=== PATIENT | male | born 2000 | race African-American/Black ===

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

== ENCOUNTER 2021-05-02 19:22 | Emergency (ER) | payer MEDICAID ==
[~2021-05-02] VITALS: Ht 160 cm; Wt 51.8 kg
[~2021-05-02 19:22] MED LIST changes: +ZITHROMAX 250M250 MG PO; +ZOFRAN ODT4 MG PO
[2021-05-02 19:30] VITALS: BP 105/68; TEMP 97.8
[2021-05-02] MEDS ORDERED: SEPTRA DS 8001 TAB PO (19:48)
[2021-05-02] MEDS ORDERED: FLAGYL500 MG PO (19:48)
[2021-05-02 20:02] VITALS: PULSE 78
== END 2021-05-02 20:02 | disposition home or self-care (01) ==
LOC: COL.ER 19:22
DX: L03.114 Cellulitis of left upper limb (principal); F17.290 Nicotine dependence, other tobacco product, uncomplicated

== ENCOUNTER 2024-02-11 13:32 | Emergency (ER) | payer SELFPAY ==
[~2024-02-11] VITALS: Ht 160 cm; Wt 54.5 kg
[~2024-02-11 13:32] MED LIST changes: +FLAGYL500 MG PO; +SEPTRA DS 8001 TAB PO
[2024-02-11 13:46] VITALS: BP 113/67; PULSE 106; TEMP 98
== END 2024-02-11 15:33 | disposition left against medical advice (07) ==
LOC: COL.ER 13:32
DX: R55 Syncope and collapse (principal); R42 Dizziness and giddiness

== ENCOUNTER 2024-02-15 18:50 | Emergency (ER) | payer SELFPAY ==
[~2024-02-15] VITALS: Ht 160 cm; Wt 54.5 kg
[2024-02-15 18:53] VITALS: TEMP 98
[2024-02-15 19:12] LABS: BASO % 0.8 % (0.0-2.0); EOS # 0.1 K/mm3 (0.0-0.7); EOS % 2.2 % (0.0-4.0); GRAN % 40.5 % (42.2-75.2); HEMATOCRIT 42.3 % (42.0-52.0); HEMOGLOBIN 15.4 g/dl (13.5-18.0); LYMPH # 2.4 K/mm3 (1.2-3.4); LYMPH % 48.7 % (20.0-51.0); MEAN CELL VOLUME 83 fl (80.0-100.0); MEAN CORPUSCULAR HEMOGLOBIN 30 pg (27-31); MEAN CORPUSCULAR HGB CONC 36 g/dl (33.0-37.0); MEAN PLATELET VOLUME 8.2 fl (7.4-10.4); MONO # 0.4 K/mm3 (0.1-0.6); MONO % 7.6 % (1.7-9.3); PLATELET COUNT 341 K/mm3 (130-400); RED BLOOD COUNT 5.13 M/mm3 (4.20-5.60); REDCELL DISTRIBUTION WIDTH-CV 11.1 % (11.5-14.5)
[2024-02-15] MEDS ORDERED: NS 1,000 ML IV ONE (19:15)
[2024-02-15 19:23] LABS: COLLECTION METHOD CLEAN CATCH
[2024-02-15] MEDS ORDERED: Mag/Al Hydrox/Simeth Susp 30 ML CUP PO ONE (19:30)
[2024-02-15] MEDS ORDERED: Famotidine 20 MG TAB PO ONE (19:30)
[2024-02-15 19:32] LABS: URINE APPEARANCE CLEAR (CLEAR/HAZY); URINE BLOOD NEGATIVE (NEGATIVE); URINE COLOR YELLOW (YELLOW); URINE GLUCOSE NEGATIVE (NEGATIVE); URINE KETONE 1+ (NEGATIVE); URINE NITRATE NEGATIVE (NEGATIVE); URINE PROTEIN(semi-quant) NEGATIVE (NEGATIVE); URINE UROBILINOGEN 0.2 E.U/dL (0.2-1.0)
[2024-02-15 19:36] LABS: ALANINE AMINOTRANSFERASE 28 U/L (0-55); ALBUMIN 4.6 gm/dL (3.5-5.0); ALKALINE PHOSPHATASE 77 U/L (40-150); ANION GAP 16 mmol/L (7-16); AST,SGOT 18 U/L (5-34); BILIRUBIN,TOTAL 1.3 mg/dL (0.2-1.2); BLOOD UREA NITROGEN 9 mg/dL (9-21); C-REACTIVE PROTEIN 0.05 mg/dL (0.00-0.50); CALCIUM 10.1 mg/dL (8.4-10.2); CARBON DIOXIDE 21 mmol/L (22-29); CHLORIDE 102 mmol/L (98-107); CREATININE, serum 1.09 mg/dL (0.72-1.25); GLUCOSE 101 mg/dL (70-99); POTASSIUM 3.5 mmol/L (3.5-4.5); SODIUM 139 mmol/L (136-145)
[2024-02-15 19:42] LABS: TROPONIN-I < 0.010 ng/mL (0.00-0.033)
[2024-02-15 19:58] VITALS: BP 129/87; PULSE 73
[2024-02-16] MEDS ORDERED: ATIVAN 1MG T1 MG/TAB PO (14:49)
== END 2024-02-15 19:58 | disposition home or self-care (01) ==
LOC: COL.ER 18:50
PROVIDERS: Nurse Practitioner Primary Care
DX: R07.89 Other chest pain (principal); F43.10 Post-traumatic stress disorder, unspecified; L98.499 Non-pressure chronic ulcer of skin of other sites with unspecified severity; Z79.899 Other long term (current) drug therapy
CPT/HCPCS: J7030

== ENCOUNTER 2024-02-16 14:25 | Emergency (ER) | payer SELFPAY ==
[~2024-02-16] VITALS: Ht 160 cm; Wt 54.5 kg
[2024-02-16 14:26] VITALS: TEMP 98.2
[2024-02-16 14:46] LABS: COLLECTION METHOD CLEAN CATCH
[2024-02-16] MEDS ORDERED: ATIVAN 1MG T1 MG/TAB PO (14:49)
[2024-02-16 14:50] LABS: URINE APPEARANCE CLEAR (CLEAR/HAZY); URINE BLOOD NEGATIVE (NEGATIVE); URINE COLOR YELLOW (YELLOW); URINE GLUCOSE NEGATIVE (NEGATIVE); URINE KETONE NEGATIVE (NEGATIVE); URINE NITRATE NEGATIVE (NEGATIVE); URINE PROTEIN(semi-quant) NEGATIVE (NEGATIVE); URINE UROBILINOGEN 0.2 E.U/dL (0.2-1.0)
[2024-02-16 15:13] LABS: TRICYCLIC ANTIDEPRESS URINE NEGATIVE (NEGATIVE)
[2024-02-16 15:29] VITALS: BP 103/72; PULSE 71
== END 2024-02-16 15:35 | disposition home or self-care (01) ==
LOC: COL.ER 14:25
PROVIDERS: Physician Assistant
DX: F41.0 Panic disorder [episodic paroxysmal anxiety] (principal); K27.9 Peptic ulcer, site unspecified, unspecified as acute or chronic, without hemorrhage or perforation; Z87.891 Personal history of nicotine dependence; Z79.899 Other long term (current) drug therapy